=== PATIENT | male | born 1965 | race Caucasian/White ===

== ENCOUNTER 2021-01-29 14:49 | Emergency (ER) | payer OTHER ==
--- NOTE | 2021-01-29 14:56 | EDM.PDOC ---
ED HPI GENERAL MEDICAL PROBLEM - General Chief Complaint: Back Pain or Injury Stated Complaint: BACK PAIN Time Seen by Provider: 01/29/21 14:50 Source of Information: Reports: Patient History Limitations: Reports: No Limitations - History of Present Illness INITIAL COMMENTS - FREE TEXT/NARRATIVE: 55-year-old male presents for left-sided low back pain. Patient notes that he has a history of sciatica and has been having pain for the last 4 weeks. It acutely worsened over the past couple of days. No urinary retention, incontinence, dysuria, hematuria. Feels like prior episodes of sciatica. Left back/leg Pain Score (Numeric/FACES): 10 - Related Data Allergies Allergy/AdvReac Type Severity Reaction Status Date / Time No Known Allergies Allergy Verified 01/29/21 15:09 Home Meds: Home Meds Cyclobenzaprine [Flexeril] 10 mg PO TID PRN #20 tab 01/29/21 [Rx] Ibuprofen [Motrin] 600 mg PO Q6H PRN #28 tab 01/29/21 [Rx] ED ROS GENERAL - Review of Systems Review Of Systems: Comprehensive ROS is negative, except as noted in HPI. ED EXAM, GENERAL - Physical Exam Exam: See Below Exam Limited By: No Limitations General Appearance: Alert, WD/WN, No Apparent Distress, Anxious Throat/Mouth: Normal Voice, No Airway Compromise Head: Atraumatic, Normocephalic Neck: Normal Inspection Respiratory/Chest: No Respiratory Distress, No Accessory Muscle Use Cardiovascular: Normal Peripheral Pulses, Regular Rate, Rhythm Back Exam: Normal Inspection. No: Vertebral Tenderness Extremities: Normal Inspection Neurological: Alert, Normal Gait Psychiatric: Normal Affect, Normal Mood Skin Exam: Warm, Dry, Intact, Normal Color Course - Vital Signs Last Recorded V/S: Last Vital Signs Temp 98.6 F 01/29/21 15:10 Pulse 81 01/29/21 15:10 Resp 18 01/29/21 15:10 BP 152/83 H 01/29/21 15:10 Pulse Ox 98 01/29/21 15:10 - Orders/Labs/Meds Meds: Medications Discontinued Medications Generic Name Dose Route Start Last Admin Trade Name Freq PRN Reason Stop Dose Admin Dexamethasone 10 mg 01/29/21 15:14 01/29/21 15:23 Dexamethasone 10 Mg/Ml Sdv IM 01/29/21 15:15 10 mg STAT STA Administration Ketorolac Tromethamine 30 mg 01/29/21 15:15 01/29/21 15:23 Ketorolac 30 Mg/Ml Sdv IM 01/29/21 15:16 30 mg ONETIME ONE Administration Morphine Sulfate 8 mg 01/29/21 15:14 01/29/21 15:23 Morphine 10 Mg/Ml Syringe IM 01/29/21 15:15 8 mg ONETIME ONE Administration Morphine Sulfate 4 mg 01/29/21 16:14 01/29/21 16:28 Morphine 4 Mg/Ml Syringe IM 01/29/21 16:15 4 mg ONETIME ONE Administration - Re-Assessments/Exams Free Text/Narrative Re-Assessment/Exam: 01/29/21 15:16 We will give morphine, Toradol, Decadron. 01/29/21 16:14 Patient's pain improved but poorly controlled. Will give 1 more dose of IM morphine and anticipate discharge Departure - Departure Time of Disposition: 16:34 Disposition: Home, Self-Care 01 Condition: Good Clinical Impression: Sciatica Qualifiers: Laterality: right Qualified Code(s): M54.31 - Sciatica, right side - Discharge Information Instructions: Sciatica Referrals: PCP,None [Primary Care Provider] - Forms: ED Department Discharge Additional Instructions: You were treated in the emergency department for sciatica. You were given a nonsteroidal anti-inflammatory, morphine, and Decadron which is a long-acting steroid. You should follow-up with your primary care physician regarding your back pain. They may want to do an MRI of your back to better elucidate the cause of your pain. I have sent medication to your pharmacy to help with your pain until you are able to follow-up with your doctor. The following information is given to patients seen in the emergency department who are being discharged to home. This information is to outline your options for follow-up care. We provide all patients seen in our emergency department with a follow-up referral. The need for follow-up, as well as the timing and circumstances, are variable depending upon the specifics of your emergency department visit. If you don't have a primary care physician on staff, we will provide you with a referral. We always advise you to contact your personal physician following an emergency department visit to inform them of the circumstance of the visit and for follow-up with them and/or the need for any referrals to a consulting specialist. The emergency department will also refer you to a specialist when appropriate. This referral assures that you have the opportunity for follow-up care with a specialist. All of these measure are taken in an effort to provide you with optimal care, which includes your follow-up. Under all circumstances we always encourage you to contact your private physician who remains a resource for coordinating your care. When calling for follow-up care, please make the office aware that this follow-up is from your recent emergency room visit. If for any reason you are refused follow-up, please contact the [facility] Emergency Department at and asked to speak to the emergency department charge nurse. Please follow up with your primary care physician. If you do not have a primary care physician, see below: [facility] [address] [place] [id number] [facility] [address] [place] [id number] [facility] - [facility] [address] [place] [id number] Sepsis Event Note (ED) - Focused Exam Vital Signs: Vital Signs Temp Pulse Resp BP Pulse Ox 01/29/21 15:10 98.6 F 81 18 152/83 H 98
[2021-01-29] MEDS ORDERED: Morphine 10 MG/ML Syringe IM ONE (15:14)
[2021-01-29] MEDS ORDERED: Dexamethasone 10 MG/ML SDV IM STA (15:14)
[2021-01-29] MEDS ORDERED: Ketorolac 30 MG/ML SDV IM ONE (15:15)
[2021-01-29] MEDS ORDERED: Morphine 4 MG/ML Syringe IM ONE (16:14)
== END 2021-01-29 16:52 | disposition home or self-care (01) ==
LOC: MW.ED 14:49
DX: M54.42 Lumbago with sciatica, left side (principal)
CPT/HCPCS: 96372; 99283; J1100; J1885; J2270

== ENCOUNTER 2021-01-29 16:58 | Emergency (ER) | payer OTHER ==
[~2021-01-29 16:58] MED LIST: Sodium Chloride 0.9% 10 ML Syringe FLUSH PRN; Sodium Chloride 0.9% 2.5 ML Syringe FLUSH PRN
--- NOTE | 2021-01-29 17:01 | EDM.PDOC ---
<Agustín Rangel - Last Filed: 01/29/21 18:44> ED HPI GENERAL MEDICAL PROBLEM - General Chief Complaint: Back Pain or Injury Stated Complaint: BACK PAIN Time Seen by Provider: 01/29/21 16:58 Source of Information: Reports: Patient History Limitations: Reports: No Limitations - History of Present Illness INITIAL COMMENTS - FREE TEXT/NARRATIVE: 55-year-old male presents for back pain. Patient was discharged roughly 5 minutes ago for same complaint. He received 12 mg of morphine during that visit. He states that his pain is intolerable and he cannot go home. Patient has history of substance abuse. Back Pain Score (Numeric/FACES): 10 - Related Data Allergies Allergy/AdvReac Type Severity Reaction Status Date / Time No Known Allergies Allergy Verified 01/29/21 17:01 Home Meds: Home Meds Cyclobenzaprine [Flexeril] 10 mg PO TID PRN #20 tab 01/29/21 [Rx] Cyclobenzaprine [Flexeril] 10 mg PO TID PRN #20 tab 01/29/21 [Rx] Ibuprofen [Motrin] 600 mg PO Q6H PRN #28 tab 01/29/21 [Rx] methylPREDNISolone [Medrol Dose Pack] 4 mg PO DAILY #21 dospk 01/29/21 [Rx] Past Medical History - Past Health History Medical/Surgical History: Denies Medical/Surgical History - Infectious Disease History Infectious Disease History: Reports: None Social & Family History - Family History Family Medical History: No Pertinent Family History ED ROS GENERAL - Review of Systems Review Of Systems: Comprehensive ROS is negative, except as noted in HPI. ED EXAM, GENERAL - Physical Exam Exam: See Below Exam Limited By: No Limitations General Appearance: Alert, WD/WN, Anxious Throat/Mouth: Normal Voice, No Airway Compromise Head: Atraumatic, Normocephalic Respiratory/Chest: No Respiratory Distress, No Accessory Muscle Use Cardiovascular: Normal Peripheral Pulses (Male) Exam: No Hernia, Normal Inspection. No: Testicular Tenderness (L), Testicular Tenderness (R), Urethral Discharge Back Exam: Normal Inspection Neurological: Alert Psychiatric: Anxious Skin Exam: Warm, Dry, Intact, Normal Color Course - Re-Assessments/Exams Free Text/Narrative Re-Assessment/Exam: 01/29/21 17:01 We will get basic labs, urinalysis, CT scan of the back. 01/29/21 17:22 Patient states that his left groin hurts. He states that this is been going on for several days and worsening today. He states he forgot to mention this earlier. Will get CT scan of abdomen and pelvis. 01/29/21 18:26 Labs grossly unremarkable. Patient's not provided a urine sample yet. Will give Dilaudid for pain and follow-up CT imaging. 01/29/21 19:00 Patient care transitioned to Dr. Conklin to f/u urinalysis and CT imaging results. Departure - Departure Disposition: Home, Self-Care 01 Clinical Impression: Back pain Sciatica Qualifiers: Laterality: right Qualified Code(s): M54.31 - Sciatica, right side - Discharge Information Prescriptions: Cyclobenzaprine [Flexeril] 10 mg PO TID PRN #20 tab PRN Reason: Spasms methylPREDNISolone [Medrol Dose Pack] 4 mg PO DAILY #21 dospk Instructions: Sciatica, Acute Back Pain, Adult Referrals: PCP,None [Primary Care Provider] - Forms: ED Department Discharge Additional Instructions: You must return immediately to the emergency room if you lose control of your bowel, lose control of your bladder, lose feeling in the area where you sit there in your feet, or lose movement anywhere below the waist. Pain alone is causing you to be unable to tolerate movement or activity then you should be advised that we do not have the availability of an MRI for patients who are admitted to the hospital here in our nearest orthopedist is [place] [address], [address] [place] [address] The following information is given to patients seen in the emergency department who are being discharged to home. This information is to outline your options for follow-up care. We provide all patients seen in our emergency department with a follow-up referral. The need for follow-up, as well as the timing and circumstances, are variable depending upon the specifics of your emergency department visit. If you don't have a primary care physician on staff, we will provide you with a referral. We always advise you to contact your personal physician following an emergency department visit to inform them of the circumstance of the visit and for follow-up with them and/or the need for any referrals to a consulting specialist. The emergency department will also refer you to a specialist when appropriate. This referral assures that you have the opportunity for follow-up care with a specialist. All of these measure are taken in an effort to provide you with optimal care, which includes your follow-up. Under all circumstances we always encourage you to contact your private physician who remains a resource for coordinating your care. When calling for follow-up care, please make the office aware that this follow-up is from your recent emergency room visit. If for any reason you are refused follow-up, please contact the [facility] Emergency Department at and asked to speak to the emergency department charge nurse. <Crow Conklin - Last Filed: 01/29/21 20:42> Course - Vital Signs Text/Narrative:: 1923 hrs. the patient was signed out to me by my partner the end of the shift. He has severe back pain which is worse than it ever had before it radiates down the left sciatic. The patient understands her were somewhat limited in her capabilities at this facility. I am not able to perform an MRI however he has no cauda equina symptoms. If unable I am unable to get his symptoms under control I will consider transfer to a facility where they have MRI and orthopedics. Last Recorded V/S: Last Vital Signs Temp 36.2 C 01/29/21 17:07 Pulse 87 01/29/21 17:07 Resp 20 01/29/21 17:07 BP 180/107 H 01/29/21 17:07 Pulse Ox 95 01/29/21 17:07 - Orders/Labs/Meds Orders: Active Orders 24 hr Category Date Time Status Sodium Chloride 0.9% [Saline Flush] Med 01/29/21 16:58 Active 10 ml FLUSH ASDIRECTED PRN Sodium Chloride 0.9% [Saline Flush] Med 01/29/21 16:58 Active 2.5 ml FLUSH ASDIRECTED PRN Saline Lock Insert [OM.PC] Stat Oth 01/29/21 16:58 Ordered Medication Orders Sodium Chloride (Sodium Chloride 0.9% 10 Ml Syringe) 10 ml FLUSH ASDIRECTED PRN PRN Reason: Keep Vein Open Last Admin: 01/29/21 18:37 Dose: 10 ml Documented by: MARY Sodium Chloride (Sodium Chloride 0.9% 2.5 Ml Syringe) 2.5 ml FLUSH ASDIRECTED PRN PRN Reason: Keep Vein Open Last Admin: 01/29/21 18:37 Dose: 2.5 ml Documented by: MARY Labs: Laboratory Tests 01/29/21 01/29/21 01/29/21 Range/Units 17:20 17:20 20:18 WBC 7.97 (4.0-11.0) K/uL RBC 5.24 (4.50-5.90) M/uL Hgb 15.6 (13.0-17.0) g/dL Hct 43.7 (38.0-50.0) % MCV 83.4 (80.0-98.0) fL MCH 29.8 (27.0-32.0) pg MCHC 35.7 (31.0-37.0) g/dL RDW Std Deviation 38.7 (28.0-62.0) fl RDW Coeff of Daniela 13 (11.0-15.0) % Plt Count 195 (150-400) K/uL MPV 10.50 (7.40-12.00) fL Neut % (Auto) 79.6 (48.0-80.0) % Lymph % (Auto) 16.4 (16.0-40.0) % [place] % (Auto) 2.6 (0.0-15.0) % Eos % (Auto) 1.1 (0.0-7.0) % Baso % (Auto) 0.3 (0.0-1.5) % Neut # (Auto) 6.3 H (1.4-5.7) K/uL Lymph # (Auto) 1.3 (0.6-2.4) K/uL [place] # (Auto) 0.2 (0.0-0.8) K/uL Eos # (Auto) 0.1 (0.0-0.7) K/uL Baso # (Auto) 0.0 (0.0-0.1) K/uL Nucleated RBC % 0.0 /100WBC Nucleated RBCs # 0 K/uL Sodium 136 (136-148) mmol/L Potassium 4.6 (3.5-5.1) mmol/L Chloride 103 (98-107) mmol/L Carbon Dioxide 21.3 (21.0-32.0) mmol/L BUN 23 H (7.0-18.0) mg/dL Creatinine 1.0 (0.8-1.3) mg/dL Est Cr Clr Drug Dosing 85.17 mL/min Estimated GFR (MDRD) > 60.0 ml/min Glucose 135 H (74-106) mg/dL Calcium 9.2 (8.5-10.1) mg/dL Total Bilirubin 0.4 (0.2-1.0) mg/dL AST 14 L (15-37) IU/L ALT 45 (14-63) IU/L Alkaline Phosphatase 80 (46-116) U/L Total Protein 8.0 (6.4-8.2) g/dL Albumin 4.2 (3.4-5.0) g/dL Globulin 3.8 (2.6-4.0) g/dL Albumin/Globulin Ratio 1.1 (0.9-1.6) Urine Color YELLOW Urine Appearance CLEAR Urine pH 6.0 (5.0-8.0) Ur Specific [place] 1.025 (1.001-1.035) Urine Protein NEGATIVE (NEGATIVE) mg/dL Urine Glucose (UA) NEGATIVE (NEGATIVE) mg/dL Urine Ketones NEGATIVE (NEGATIVE) mg/dL Urine Occult Blood NEGATIVE (NEGATIVE) Urine Nitrite NEGATIVE (NEGATIVE) Urine Bilirubin NEGATIVE (NEGATIVE) Urine Urobilinogen 0.2 (<2.0) EU/dL Ur Leukocyte Esterase NEGATIVE (NEGATIVE) Meds: Medications Generic Name Dose Route Start Last Admin Trade Name Tin PRN Reason Stop Dose Admin Sodium Chloride 10 ml 01/29/21 16:58 01/29/21 18:37 Sodium Chloride 0.9% 10 Ml Syringe FLUSH 10 ml ASDIRECTED PRN Administration Keep Vein Open Sodium Chloride 2.5 ml 01/29/21 16:58 01/29/21 18:37 Sodium Chloride 0.9% 2.5 Ml Syringe FLUSH 2.5 ml ASDIRECTED PRN Administration Keep Vein Open Discontinued Medications Generic Name Dose Route Start Last Admin Trade Name Tin PRN Reason Stop Dose Admin Hydromorphone HCl 1 mg 01/29/21 18:26 01/29/21 18:37 Hydromorphone 1 Mg/Ml Syringe IVPUSH 01/29/21 18:27 1 mg ONETIME ONE Administration Iopamidol 100 ml 01/29/21 19:19 01/29/21 19:20 Iopamidol 755 Mg/Ml 500 Ml Multipack Bottle IVPUSH 01/29/21 19:20 100 ml ONETIME STA Administration Lidocaine 700 mg 01/29/21 17:04 01/29/21 17:19 Lidocaine 5% 700 Mg Patch TOP 01/29/21 17:05 700 mg ONETIME ONE Administration Orphenadrine Citrate 60 mg 01/29/21 17:03 01/29/21 17:19 Orphenadrine 60 Mg/2 Ml Inj IM 01/29/21 17:04 60 mg ONETIME ONE Administration - Radiology Interpretation Free Text/Narrative:: The patient is markedly improved at 2040 1 PM. He lives in [place] and will go back in 2 weeks. He is going to take steroids and follow-up in [place] if he continues to have severe pain. Departure - Departure Time of Disposition: 20:41 Condition: Good Sepsis Event Note (ED) - Focused Exam Vital Signs: Vital Signs Temp Pulse Resp BP Pulse Ox 01/29/21 17:07 36.2 C 87 20 180/107 H 95
[2021-01-29] MEDS ORDERED: Orphenadrine 60 MG/2 ML Inj IM ONE (17:03)
[2021-01-29] MEDS ORDERED: Lidocaine 5% 700 MG Patch TOP ONE (17:04)
[2021-01-29 17:53] LABS: BLOOD UREA NITROGEN,BUN 23 mg/dL (7.0-18.0); CARBON DIOXIDE,CO2 21.3 mmol/L (21.0-32.0); CHLORIDE,CL 103 mmol/L (98-107); GLUCOSE RANDOM 135 mg/dL (74-106); POTASSIUM,K 4.6 mmol/L (3.5-5.1); SODIUM,NA 136 mmol/L (136-148)
[2021-01-29] MEDS ORDERED: HYDROmorphone 1 MG/ML Syringe IVPUSH ONE (18:26)
[2021-01-29] MEDS ORDERED: Iopamidol 755 MG/ML 500 ML Multipack Bottle IVPUSH STA (19:19)
--- NOTE | 2021-01-29 20:12 | CT ---
INDICATION: PELVIC/LEFT GROIN PAIN CT ABDOMEN AND PELVIS WITH CONTRAST TECHNIQUE: Multidetector CT imaging was performed through the abdomen and pelvis following intravenous contrast administration using 100 mL Isovue 370. Coronal and sagittal reconstructions were generated. COMPARISON: None. FINDINGS: Lower chest: Minimal basilar lung atelectasis. Liver: Within normal limits. Gallbladder and bile ducts: Nonspecific mild gallbladder distention. No gallbladder wall thickening or calcified gallstones. No biliary dilation identified. Pancreas: Unremarkable. Spleen: Unremarkable aside from calcified granulomas. Adrenals: No nodules or masses. Kidneys, ureters, and urinary bladder: No renal masses. Tiny nonobstructing left intrarenal stone. No hydronephrosis involving either kidney. No bladder mass or definite wall thickening. Gastrointestinal tract: Normal caliber small bowel without wall thickening or obstruction. The appendix is normal. There are a few scattered colon diverticula, without evidence of diverticulitis. Abdominal wall: Very small fat-containing umbilical and supraumbilical hernias. Very small bilateral fat-containing inguinal hernias, left slightly larger than right. No left groin mass, hematoma, or lymphadenopathy identified. Vascular structures: Normal caliber abdominal aorta with trace atherosclerotic calcification. Peritoneum: No free air, abscess, or significant free fluid. Lymph nodes: No pathologically enlarged nodes identified. Reproductive organs: Upper normal prostate size. Bones: Old healed lower left rib fractures. Mild spinal degenerative changes. Small lipoma within the inferior left latissimus dorsi muscle. IMPRESSION: 1. No acute abnormality identified within the abdomen or pelvis. 2. Very small bilateral fat containing inguinal hernias. No left groin mass, hematoma, or lymphadenopathy identified. 3. Nonacute findings as detailed above. SULEMAN BARRERA MD [employer] Dictated by Finn Barrera MD @ 01/29/2021 8:09:06 PM Dictated by: Finn Barrera MD @ 01/29/2021 20:10:57 (Electronically Signed)
--- NOTE | 2021-01-29 20:18 | CT ---
INDICATION: BACK PAIN CT LUMBAR SPINE TECHNIQUE: Multidetector axial CT imaging was performed through the lumbar spine. Sagittal and coronal reconstructions were generated. FINDINGS: No acute fractures are identified. No destructive osseous lesions are evident. Disc spaces appear preserved. Osseous alignment is within normal limits and no subluxation is seen. There are small endplate osteophytes throughout the lumbar spine. Minimal degenerative bulging of the lumbar intervertebral discs is present. There are minor DJD changes of the mid and lower lumbar facet joints bilaterally. No severe lumbar spinal stenosis or neural foraminal narrowing is demonstrated. Paravertebral soft tissues are unremarkable. IMPRESSION: 1. No fracture, destructive osseous lesion, or other acute finding identified. 2. Very mild lumbar spine degenerative changes, as detailed above. SULEMAN BARRERA MD [employer] Dictated by Finn Barrera MD @ 01/29/2021 8:15:40 PM Dictated by: Finn Barrera MD @ 01/29/2021 20:16:41 (Electronically Signed)
== END 2021-01-29 21:05 | disposition home or self-care (01) ==
LOC: MW.ED 16:58
DX: M54.31 Sciatica, right side (principal)
CPT/HCPCS: 36415; 72131; 74177; 80053; 81003; 85025; 96372; 96374; 99284; A9270; J1170; J2360; Q9967; 99283